=== PATIENT | male | born 1955 | race African-American/Black ===

== ENCOUNTER 2017-02-04 08:18 | Inpatient (IN) | payer OTHER ==
[2017-02-04 10:04] VITALS: BMI 23.8
--- NOTE | 2017-02-04 11:32 | HP ---
CIWA Score - CIWA Score Nausea/Vomitin-No Nausea/No Vomiting Muscle Tremors: 1-None Visible, but University Anxiety: 4-Mod. Anxious/Guarded Agitation: 4-Moderately Restless Paroxysmal Sweats: No Perspiration Orientation: 0-Oriented Tacttile Disturbances: 0-None Auditory Disturbances: 0-None Visual Disturbances: 0-None Headache: 0-None Present CIWA-Ar Total Score: 9 Admission ROS BHS - HPI Chief Complaint: Withdrawal sx. Allergies/Adverse Reactions: Allergies Allergy/AdvReac Type Severity Reaction Status Date / Time No Known Allergies Allergy Verified 02/04/17 10:25 History of Present Illness: 61 y/o man with a long hx of alcoholism is admitted for detox. Pt. has been in previous detox denies significant sobriety. He's currently attending mental health clinic in the . Exam Limitations: No Limitations - Ebola screening Have you traveled outside of the country in the last 21 days: No Have you had contact with anyone from an Ebola affected area: No Have you been sick,other than usual withdrawal symptoms: No - Review of Systems Constitutional: Diaphoresis EENT: reports: No Symptoms Reported Respiratory: reports: No Symptoms reported Cardiac: reports: No Symptoms Reported GI: reports: No Symptoms Reported : reports: No Symptoms Reported Musculoskeletal: reports: Back Pain, Joint Pain Integumentary: reports: Sweating Neuro: reports: Tremors Endocrine: reports: No Symptoms Reported Hematology: reports: No Symptoms Reported Psychiatric: reports: No Sypmtoms Reported Other Systems: Reviewed and Negative Patient History - Patient Medical History Hx Anemia: No Hx Asthma: No Hx Chronic Obstructive Pulmonary Disease (COPD): No Hx Cancer: No Hx Cardiac Disorders: No Hx Congestive Heart Failure: No Hx Hypertension: No Hx Hypercholesterolemia: No Hx Pacemaker: No HX Cerebrovascular Accident: No Hx Seizures: No Hx Dementia: No Hx Diabetes: No Hx Gastrointestinal Disorders: Yes (GERD on prilosec) Hx Liver Disease: No Hx Genitourinary Disorders: No Hx Sexually Transmitted Disorders: No Hx Renal Disease (ESRD): No Hx Thyroid Disease: No Hx Human Immunodeficiency Virus (HIV): No Hx Hepatitis C: No Hx Depression: Yes Hx Suicide Attempt: No Hx Bipolar Disorder: Yes Hx Schizophrenia: No - Patient Surgical History Past Surgical History: Yes Hx Abdominal Surgery: Yes (UMBILICAL HERNIA REPAIR 03/28) Anesthesia Reaction: No - PPD History Previous Implant?: Yes Documented Results: Negative w/o proof Implanted On Prior [facility] Admission?: No PPD to be Administered?: Yes - Smoking Cessation Smoking history: Current some day smoker Have you smoked in the past 12 months: Yes Aproximately how many cigarettes per day: 20 Hx Chewing Tobacco Use: No Initiated information on smoking cessation: Yes 'Breaking Loose' booklet given: 02/04/17 - Substance & Tx. History Hx Alcohol Use: Yes Hx Substance Use: Yes Substance Use Type: Alcohol, Cocaine Hx Substance Use Treatment: Yes (Detox) - Substances Abused Alcohol Route: Oral Frequency: Daily Amount used: 1 QT VODKA Age of first use: 14 Date of Last Use: 02/04/17 Cocaine Route: Inhalation Frequency: Daily Amount used: $100 Age of first use: 18 Date of Last Use: 02/04/17 Family Disease History - Family Disease History Family Disease History: Diabetes: Mother (HTN,CVA,alcoholism), Sister (HTN,CVA) , Heart Disease: Mother, Brother (HTN,Heroin,alcohol), Sister, Other: Mother, Brother, Sister Admission Physical Exam [facility] - Vital Signs Vital Signs: Vital Signs - 24 hr 02/04/17 10:00 Temperature 97 F L Pulse Rate 80 Respiratory 20 Rate Blood Pressure 113/76 - Physical General Appearance: Yes: Sweating, Anxious HEENTM: Yes: Within Normal Limits Respiratory: Yes: Chest Non-Tender, Lungs Clear, Normal Breath Sounds Neck: Yes: Supple Breast: Yes: Breast Exam Deferred Cardiology: Yes: Regular Rhythm, Regular Rate, S1, S2 Abdominal: Yes: Normal Bowel Sounds, Non Tender, Soft Genitourinary: Yes: Within Normal Limits Back: Yes: Within Normal Limits Musculoskeletal: Yes: Within Normal Limits Extremities: Yes: Tremors Neurological: Yes: Fully Oriented, Alert Integumentary: Yes: Diaphoresis Lymphatic: Yes: Within Normal Limits - Diagnostic (1) Alcohol dependence with uncomplicated withdrawal Current Visit: Yes Status: Acute (2) Cocaine dependence, uncomplicated Current Visit: Yes Status: Acute Cleared for Admission [facility] - Detox or Rehab [facility] Level of Care: Medically Supervised Detox Regimen/Protocol: Librium [facility] Breath Alcohol Content Breath Alcohol Content: 0.366 Urine Drug Screen - Results Drug Screen Negative: No Urine Drug Screen Results: EDNA-Cocaine
[2017-02-04] MEDS ORDERED: MAGNESIUM CITRATE 300 ML BOTTLE PO PRN (11:46)
[2017-02-04] MEDS ORDERED: chlordiazePOXIDE HCL 25 MG CAPSULE PO PRN (11:46)
[2017-02-04] MEDS ORDERED: chlordiazePOXIDE HCL 25 MG CAPSULE PO ONE (11:46)
[2017-02-04] MEDS ORDERED: P-EPHED 60MG/TRIPROLIDI 2.5MG TABLET PO PRN (11:46)
[2017-02-04] MEDS ORDERED: guaiFENesin/D-METHORPHAN HB 10 ML UNIT-DOSE CUPS PO PRN (11:46)
[2017-02-04] MEDS ORDERED: IBUPROFEN 400 MG TABLET (FP) PO PRN (11:46)
[2017-02-04] MEDS ORDERED: NICOTINE POLACRILEX 2 MG GUM BUC PRN (11:46)
[2017-02-04] MEDS ORDERED: MAGNESIUM HYDROX 2400MG/30ML ORAL SUSPENSION 30 ML CUP PO PRN (11:46)
[2017-02-04] MEDS ORDERED: hydrOXYzine PAMOATE 50 MG CAPSULE (FP) PO PRN (11:46)
[2017-02-04] MEDS ORDERED: MENTHOL/PHENOL 1 EACH UD MM PRN (11:46)
[2017-02-04] MEDS ORDERED: MAG HYDROX/AL HYDROX/SIMETH 30 ML UNIT-DOSE CUP PO PRN (11:46)
[2017-02-04] MEDS ORDERED: ACETAMINOPHEN 325 MG TABLET (FP) PO PRN (11:46)
[2017-02-04] MEDS ORDERED: LOPERAMIDE HCL 2 MG CAPSULE PO PRN (11:46)
[2017-02-04] MEDS: NICOTINE 21 MG/24 HOURS TOPICAL PATCH TD SCH (13:00)
[2017-02-04] MEDS ORDERED: chlordiazePOXIDE HCL 25 MG CAPSULE ONE (14:26)
[2017-02-04] MEDS: chlordiazePOXIDE HCL 25 MG CAPSULE PO SCH ×2 (17:13→22:28)
[2017-02-04 18:01] LABS: URINE APPEARANCE CLEAR; URINE BILIRUBIN NEGATIVE (NEGATIVE); URINE COLOR YELLOW; URINE GLUCOSE (UA) NEGATIVE (NEGATIVE); URINE KETONE 1+ (NEGATIVE); URINE LEUK ESTERASE NEGATIVE (NEGATIVE); URINE NITRITE NEGATIVE (NEGATIVE); URINE UROBILINOGEN NEGATIVE E.U./dl (0.2-1.0)
[2017-02-04 18:19] LABS: URINE BLOOD 1+ (NEGATIVE); URINE PROTEIN 2+ (NEGATIVE)
[2017-02-04 20:37] LABS: URINE BACTERIA MANY /hpf (NONE SEEN); URINE MUCUS MANY; URINE RBC 5 /hpf (0-3); URINE WBC 11 /hpf (3-5)
[2017-02-04] MEDS: THIAMINE HCL 100 MG TABLET (FP) PO SCH (22:28)
[2017-02-04] MEDS: diphenhydrAMINE HCL 50 MG CAPSULE PO PRN (22:28)
[2017-02-05] MEDS: chlordiazePOXIDE HCL 25 MG CAPSULE PO SCH ×5 (05:56→22:56)
--- NOTE | 2017-02-05 08:26 | EKG ---
Test Reason : Blood Pressure : / mmHG Vent. Rate : 055 BPM Atrial Rate : 055 BPM P-R Int : 180 ms QRS Dur : 096 ms QT Int : 450 ms P-R-T Axes : 061 009 019 degrees QTc Int : 430 ms SINUS BRADYCARDIA VOLTAGE CRITERIA FOR LEFT VENTRICULAR HYPERTROPHY ABNORMAL ECG NO PREVIOUS ECGS AVAILABLE Confirmed by JANA DEY, LARISSA ([id number]) on 02/05/2017 8:25:34 AM Referred By: Moose Ferrell Confirmed By:LARISSA BATES MD
[2017-02-05 10:25] LABS: ALBUMIN 3.9 g/dl (3.4-5.0); CALCIUM 9.1 mg/dL (8.5-10.1); COCKROFT - GAULT 59.66; CREATININE 1.3 mg/dL (0.7-1.3)
[2017-02-05 10:27] LABS: BILIRUBIN,TOTAL 0.7 mg/dL (0.2-1.0); TOT PROT 6.9 g/dl (6.4-8.2)
[2017-02-05] MEDS: PRENATAL VITAMINS W/ FOLIC ACID TABLET (FP) PO SCH (10:33)
[2017-02-05] MEDS: ASPIRIN 81 MG CHEWABLE TABLETS PO SCH (10:34)
[2017-02-05] MEDS: NICOTINE 21 MG/24 HOURS TOPICAL PATCH TD SCH (10:34)
--- NOTE | 2017-02-05 10:55 | CONSULT ---
[facility] Psychiatric Consult - Data Date of interview: 02/05/17 Admission source: [facility] Identifying data: This is 61 years old male with no psychiatric hospitalization history intoxicated with: Alcohol, Copcaine, Nicotine Substance Abuse History: - Smoking Cessation. Smoking history: Current some day smoker. Have you smoked in the past 12 months: Yes. Aproximately how many cigarettes per day: 20. Hx Chewing Tobacco Use: No. Initiated information on smoking cessation: Yes. 'Breaking Loose' booklet given: 02/04/17. - Substance & Tx. History. Hx Alcohol Use: Yes. Hx Substance Use: Yes. Substance Use Type : Alcohol, Cocaine. Hx Substance Use Treatment: Yes (Detox). - Substances Abused. Alcohol. Route: Oral. Frequency: Daily. Amount used: 1 QT VODKA. Age of first use: 14. Date of Last Use: 02/04/17. Cocaine. Route: Inhalation. Frequency: Daily. Amount used: $100. Age of first use: 18. Date of Last Use: 02/04/17 Medical History: Umbilical Hernia surgery history Psychiatric History: Patioent reprots histopry of depression, reports taking prior to admission: Paxil 30mg poqd. Ambien 10mg po qhs Physical/Sexual Abuse/Trauma History: Denies Additional Comment: Paxil 30mg poqd. Ambien 10mg po qhs Mental Status Exam - Mental Status Exam Alert and Oriented to: Person Cognitive Function: Fair Patient Appearance: Well Groomed, Unkempt Mood: Nervous, Anxious Affect: Mood Congruent Patient Behavior: Guarded, Cooperative Speech Pattern: Pressured Voice Loudness: Normal Thought Process: Goal Oriented Thought Disorder: Being Controlled Hallucinations: Denies Suicidal Ideation: Denies Homicidal Ideation: Denies Insight/Judgement: Fair Sleep: Difficulty falling asleep Appetite: Fair Muscle strength/Tone: Normal Gait/Station: Normal Additional Comments: Paxil 30mg poqd. Ambien 10mg po qhs Psychiatric Findings - Problem List ([place] 1, 2,3) (1) Alcohol dependence with uncomplicated withdrawal Current Visit: Yes Status: Acute (2) Cocaine dependence, uncomplicated Current Visit: Yes Status: Acute (3) Drug-induced mood disorder Current Visit: Yes Status: Acute - Initial Treatment Plan Initial Treatment Plan: Paxil 30mg poqd. Ambien 10mg po qhs
[2017-02-05 10:58] LABS: BASOPHIL 1.2 % (0-2.0); EOSINOPHIL 3.5 % (0-4.5); MCH 29.1 pg (25.7-33.7); MCHC 32.9 g/dl (32.0-35.9); MEAN CELL VOLUME 88.6 fl (80-96); MEAN PLT VOLUME 9.2 fl (7.5-11.1); NEUTROPHILS 67.3 % (42.8-82.8); PLATELET COUNT 271 K/MM3 (134-434); RDW 14.5 % (11.9-15.9); WHITE BLOOD COUNT 8.9 K/mm3 (4.0-10.0)
--- NOTE | 2017-02-05 11:23 | PN ---
[facility] CIWA - CIWA Score Nausea/Vomitin-No Nausea/No Vomiting Muscle Tremors: 4-Moderate,w/Arms Extend Anxiety: 4-Mod. Anxious/Guarded Agitation: 4-Moderately Restless Paroxysmal Sweats: 1-Minimal Palms Moist Orientation: 0-Oriented Tacttile Disturbances: 3-Moderate Itch/Numb/Burn Auditory Disturbances: 0-None Visual Disturbances: 0-None Headache: 0-None Present CIWA-Ar Total Score: 16 BHS Progress Note (SOAP) Subjective: ANXIETY,SWEATS,FATIGUE. Objective: 02/05/17 11:18 Vital Signs Temperature 97.1 F L 02/05/17 10:03 Pulse Rate 77 02/05/17 10:03 Respiratory Rate 18 02/05/17 10:03 Blood Pressure 105/74 02/05/17 10:03 O2 Sat by Pulse Oximetry (%) Laboratory Last Values WBC 8.9 K/mm3 (4.0-10.0) 02/05/17 06:00 RBC 4.60 M/mm3 (4.00-5.60) 02/05/17 06:00 Hgb 13.4 GM/dL (11.7-16.9) 02/05/17 06:00 Hct 40.8 % (35.4-49) 02/05/17 06:00 MCV 88.6 fl (80-96) 02/05/17 06:00 MCHC 32.9 g/dl (32.0-35.9) 02/05/17 06:00 RDW 14.5 % (11.9-15.9) 02/05/17 06:00 Plt Count 271 K/MM3 (134-434) 02/05/17 06:00 MPV 9.2 fl (7.5-11.1) 02/05/17 06:00 Neutrophils % 67.3 % (42.8-82.8) 02/05/17 06:00 Lymphocytes % 18.7 % (8-40) 02/05/17 06:00 Monocytes % 9.3 % (3.8-10.2) 02/05/17 06:00 Eosinophils % 3.5 % (0-4.5) 02/05/17 06:00 Basophils % 1.2 % (0-2.0) 02/05/17 06:00 Sodium 143 mmol/L (136-145) 02/05/17 06:00 Potassium 3.9 mmol/L (3.5-5.1) 02/05/17 06:00 Chloride 104 mmol/L (98-107) 02/05/17 06:00 Carbon Dioxide 30 mmol/L (21-32) 02/05/17 06:00 Anion Gap 9 (8-16) 02/05/17 06:00 BUN 16 mg/dL (7-18) 02/05/17 06:00 Creatinine 1.3 mg/dL (0.7-1.3) 02/05/17 06:00 Creat Clearance w eGFR 56.50 (>60) 02/05/17 06:00 Random Glucose 107 mg/dL (74-106) H 02/05/17 06:00 Calcium 9.1 mg/dL (8.5-10.1) 02/05/17 06:00 Total Bilirubin 0.7 mg/dL (0.2-1.0) 02/05/17 06:00 AST 34 U/L (15-37) 02/05/17 06:00 ALT 42 U/L (12-78) 02/05/17 06:00 Alkaline Phosphatase 72 U/L (45-117) 02/05/17 06:00 Total Protein 6.9 g/dl (6.4-8.2) 02/05/17 06:00 Albumin 3.9 g/dl (3.4-5.0) 02/05/17 06:00 Urine Color Yellow 02/04/17 13:00 Urine Appearance Clear 02/04/17 13:00 Urine pH 5.0 (5.0-8.0) 02/04/17 13:00 Ur Specific [place] 1.020 (1.001-1.035) 02/04/17 13:00 Urine Protein 2+ (NEGATIVE) H 02/04/17 13:00 Urine Glucose (UA) Negative (NEGATIVE) 02/04/17 13:00 Urine Ketones 1+ (NEGATIVE) H 02/04/17 13:00 Urine Blood 1+ (NEGATIVE) H 02/04/17 13:00 Urine Nitrite Negative (NEGATIVE) 02/04/17 13:00 Urine Bilirubin Negative (NEGATIVE) 02/04/17 13:00 Urine Urobilinogen Negative E.U./dl (0.2-1.0) 02/04/17 13:00 Ur Leukocyte Esterase Negative (NEGATIVE) 02/04/17 13:00 Urine RBC 5 /hpf (0-3) 02/04/17 13:00 Urine WBC 11 /hpf (3-5) 02/04/17 13:00 Urine Bacteria Many /hpf (NONE SEEN) 02/04/17 13:00 Urine Mucus Many 02/04/17 13:00 Assessment: 02/05/17 11:19 WITHDRAWAL SX Plan: CONTINUE DETOX REPEAT UA
[2017-02-05] MEDS: PARoxetine HCL 10 MG TABLET (FP) PO SCH (14:40)
[2017-02-05 18:13] LABS: URINE APPEARANCE CLEAR; URINE BILIRUBIN NEGATIVE (NEGATIVE); URINE BLOOD NEGATIVE (NEGATIVE); URINE COLOR YELLOW; URINE GLUCOSE (UA) NEGATIVE (NEGATIVE); URINE KETONE NEGATIVE (NEGATIVE); URINE LEUK ESTERASE NEGATIVE (NEGATIVE); URINE NITRITE NEGATIVE (NEGATIVE); URINE PROTEIN NEGATIVE (NEGATIVE); URINE UROBILINOGEN NEGATIVE E.U./dl (0.2-1.0)
[2017-02-05] MEDS ORDERED: ZOLPIDEM TARTRATE 10 MG TABLET (PARK CARE ONLY) PO PRN (22:00)
[2017-02-05] MEDS: THIAMINE HCL 100 MG TABLET (FP) PO SCH (22:57)
[2017-02-06] MEDS: chlordiazePOXIDE HCL 25 MG CAPSULE PO SCH ×2 (05:33→10:27)
[2017-02-06] MEDS: ASPIRIN 81 MG CHEWABLE TABLETS PO SCH (10:27)
[2017-02-06] MEDS: PARoxetine HCL 10 MG TABLET (FP) PO SCH (10:27)
[2017-02-06] MEDS: NICOTINE 21 MG/24 HOURS TOPICAL PATCH TD SCH (10:27)
[2017-02-06] MEDS: PRENATAL VITAMINS W/ FOLIC ACID TABLET (FP) PO SCH (10:27)
--- NOTE | 2017-02-06 12:21 | PN ---
[facility] CIWA - CIWA Score Nausea/Vomitin-No Nausea/No Vomiting Muscle Tremors: 4-Moderate,w/Arms Extend Anxiety: 4-Mod. Anxious/Guarded Agitation: 4-Moderately Restless Paroxysmal Sweats: 1-Minimal Palms Moist Orientation: 0-Oriented Tacttile Disturbances: 3-Moderate Itch/Numb/Burn Auditory Disturbances: 0-None Visual Disturbances: 0-None Headache: 0-None Present CIWA-Ar Total Score: 16 BHS Progress Note (SOAP) Subjective: ANXIETY,SWEATS/CHILLS,FATIGUE. Objective: 02/06/17 12:20 Vital Signs Temperature 97.4 F L 02/06/17 09:20 Pulse Rate 74 02/06/17 09:20 Respiratory Rate 18 02/06/17 09:20 Blood Pressure 118/79 02/06/17 09:20 O2 Sat by Pulse Oximetry (%) Laboratory Last Values WBC 8.9 K/mm3 (4.0-10.0) 02/05/17 06:00 RBC 4.60 M/mm3 (4.00-5.60) 02/05/17 06:00 Hgb 13.4 GM/dL (11.7-16.9) 02/05/17 06:00 Hct 40.8 % (35.4-49) 02/05/17 06:00 MCV 88.6 fl (80-96) 02/05/17 06:00 MCHC 32.9 g/dl (32.0-35.9) 02/05/17 06:00 RDW 14.5 % (11.9-15.9) 02/05/17 06:00 Plt Count 271 K/MM3 (134-434) 02/05/17 06:00 MPV 9.2 fl (7.5-11.1) 02/05/17 06:00 Neutrophils % 67.3 % (42.8-82.8) 02/05/17 06:00 Lymphocytes % 18.7 % (8-40) 02/05/17 06:00 Monocytes % 9.3 % (3.8-10.2) 02/05/17 06:00 Eosinophils % 3.5 % (0-4.5) 02/05/17 06:00 Basophils % 1.2 % (0-2.0) 02/05/17 06:00 Sodium 143 mmol/L (136-145) 02/05/17 06:00 Potassium 3.9 mmol/L (3.5-5.1) 02/05/17 06:00 Chloride 104 mmol/L (98-107) 02/05/17 06:00 Carbon Dioxide 30 mmol/L (21-32) 02/05/17 06:00 Anion Gap 9 (8-16) 02/05/17 06:00 BUN 16 mg/dL (7-18) 02/05/17 06:00 Creatinine 1.3 mg/dL (0.7-1.3) 02/05/17 06:00 Creat Clearance w eGFR 56.50 (>60) 02/05/17 06:00 Random Glucose 107 mg/dL (74-106) H 02/05/17 06:00 Calcium 9.1 mg/dL (8.5-10.1) 02/05/17 06:00 Total Bilirubin 0.7 mg/dL (0.2-1.0) 02/05/17 06:00 AST 34 U/L (15-37) 02/05/17 06:00 ALT 42 U/L (12-78) 02/05/17 06:00 Alkaline Phosphatase 72 U/L (45-117) 02/05/17 06:00 Total Protein 6.9 g/dl (6.4-8.2) 02/05/17 06:00 Albumin 3.9 g/dl (3.4-5.0) 02/05/17 06:00 Urine Color Yellow 02/05/17 14:38 Urine Appearance Clear 02/05/17 14:38 Urine pH 5.0 (5.0-8.0) 02/05/17 14:38 Ur Specific [place] 1.020 (1.001-1.035) 02/05/17 14:38 Urine Protein Negative (NEGATIVE) 02/05/17 14:38 Urine Glucose (UA) Negative (NEGATIVE) 02/05/17 14:38 Urine Ketones Negative (NEGATIVE) 02/05/17 14:38 Urine Blood Negative (NEGATIVE) 02/05/17 14:38 Urine Nitrite Negative (NEGATIVE) 02/05/17 14:38 Urine Bilirubin Negative (NEGATIVE) 02/05/17 14:38 Urine Urobilinogen Negative E.U./dl (0.2-1.0) 02/05/17 14:38 Ur Leukocyte Esterase Negative (NEGATIVE) 02/05/17 14:38 Urine RBC 5 /hpf (0-3) 02/04/17 13:00 Urine WBC 11 /hpf (3-5) 02/04/17 13:00 Urine Bacteria Many /hpf (NONE SEEN) 02/04/17 13:00 Urine Mucus Many 02/04/17 13:00 RPR Titer Nonreactive (NONREACTIVE) 02/05/17 06:00 Assessment: 02/06/17 12:20 WITHDRAWAL SX Plan: CONTINUE DETOX
[2017-02-06] MEDS: chlordiazePOXIDE 5 MG CAPSULE PO SCH ×2 (18:19→22:46)
[2017-02-06 20:24] LABS: URINE APPEARANCE CLEAR; URINE BILIRUBIN NEGATIVE (NEGATIVE); URINE BLOOD NEGATIVE (NEGATIVE); URINE COLOR LTYELLOW; URINE GLUCOSE (UA) NEGATIVE (NEGATIVE); URINE KETONE NEGATIVE (NEGATIVE); URINE NITRITE NEGATIVE (NEGATIVE); URINE PROTEIN NEGATIVE (NEGATIVE); URINE UROBILINOGEN NEGATIVE E.U./dl (0.2-1.0)
[2017-02-06 21:19] LABS: URINE LEUK ESTERASE 1+ (NEGATIVE)
[2017-02-06] MEDS: THIAMINE HCL 100 MG TABLET (FP) PO SCH (22:46)
[2017-02-06] MEDS: diphenhydrAMINE HCL 50 MG CAPSULE PO PRN (22:47)
[2017-02-06 22:49] LABS: URINE MUCUS RARE; URINE RBC 2 /hpf (0-3); URINE WBC 6 /hpf (3-5)
[2017-02-06 22:50] LABS: URINE HYALINE CAST 3 /lpf
[2017-02-07] MEDS: chlordiazePOXIDE 5 MG CAPSULE PO SCH ×2 (05:24→10:45)
--- NOTE | 2017-02-07 10:35 | PN ---
BHS Progress Note (SOAP) Subjective: Sweating,interrupted sleep,restless Objective: 02/07/17 10:30 Vital Signs - 8 hr 02/07/17 02/07/17 02/07/17 03:35 06:30 06:41 Temperature 97.3 F L Pulse Rate 61 Respiratory 18 18 18 Rate Blood Pressure 131/84 02/07/17 09:28 Temperature 96.0 F L Pulse Rate 74 Respiratory 18 Rate Blood Pressure 118/78 Laboratory Last Values WBC 8.9 K/mm3 (4.0-10.0) 02/05/17 06:00 RBC 4.60 M/mm3 (4.00-5.60) 02/05/17 06:00 Hgb 13.4 GM/dL (11.7-16.9) 02/05/17 06:00 Hct 40.8 % (35.4-49) 02/05/17 06:00 MCV 88.6 fl (80-96) 02/05/17 06:00 MCHC 32.9 g/dl (32.0-35.9) 02/05/17 06:00 RDW 14.5 % (11.9-15.9) 02/05/17 06:00 Plt Count 271 K/MM3 (134-434) 02/05/17 06:00 MPV 9.2 fl (7.5-11.1) 02/05/17 06:00 Neutrophils % 67.3 % (42.8-82.8) 02/05/17 06:00 Lymphocytes % 18.7 % (8-40) 02/05/17 06:00 Monocytes % 9.3 % (3.8-10.2) 02/05/17 06:00 Eosinophils % 3.5 % (0-4.5) 02/05/17 06:00 Basophils % 1.2 % (0-2.0) 02/05/17 06:00 Sodium 143 mmol/L (136-145) 02/05/17 06:00 Potassium 3.9 mmol/L (3.5-5.1) 02/05/17 06:00 Chloride 104 mmol/L (98-107) 02/05/17 06:00 Carbon Dioxide 30 mmol/L (21-32) 02/05/17 06:00 Anion Gap 9 (8-16) 02/05/17 06:00 BUN 16 mg/dL (7-18) 02/05/17 06:00 Creatinine 1.3 mg/dL (0.7-1.3) 02/05/17 06:00 Creat Clearance w eGFR 56.50 (>60) 02/05/17 06:00 Random Glucose 107 mg/dL (74-106) H 02/05/17 06:00 Calcium 9.1 mg/dL (8.5-10.1) 02/05/17 06:00 Total Bilirubin 0.7 mg/dL (0.2-1.0) 02/05/17 06:00 AST 34 U/L (15-37) 02/05/17 06:00 ALT 42 U/L (12-78) 02/05/17 06:00 Alkaline Phosphatase 72 U/L (45-117) 02/05/17 06:00 Total Protein 6.9 g/dl (6.4-8.2) 02/05/17 06:00 Albumin 3.9 g/dl (3.4-5.0) 02/05/17 06:00 Urine Color Ltyellow 02/06/17 19:45 Urine Appearance Clear 02/06/17 19:45 Urine pH 6.0 (5.0-8.0) 02/06/17 19:45 Ur Specific [place] 1.015 (1.001-1.035) 02/06/17 19:45 Urine Protein Negative (NEGATIVE) 02/06/17 19:45 Urine Glucose (UA) Negative (NEGATIVE) 02/06/17 19:45 Urine Ketones Negative (NEGATIVE) 02/06/17 19:45 Urine Blood Negative (NEGATIVE) 02/06/17 19:45 Urine Nitrite Negative (NEGATIVE) 02/06/17 19:45 Urine Bilirubin Negative (NEGATIVE) 02/06/17 19:45 Urine Urobilinogen Negative E.U./dl (0.2-1.0) 02/06/17 19:45 Ur Leukocyte Esterase 1+ (NEGATIVE) H 02/06/17 19:45 Urine RBC 2 /hpf (0-3) 02/06/17 19:45 Urine WBC 6 /hpf (3-5) 02/06/17 19:45 Ur Epithelial Cells Rare /hpf (FEW) 02/06/17 19:45 Urine Bacteria Many /hpf (NONE SEEN) 02/04/17 13:00 Hyaline Casts 3 /lpf 02/06/17 19:45 Urine Mucus Rare 02/06/17 19:45 RPR Titer Nonreactive (NONREACTIVE) 02/05/17 06:00 labs noted,repeat u/a today Assessment: 02/07/17 10:35 withdrawal sx. Plan: continue detox
[2017-02-07] MEDS: ASPIRIN 81 MG CHEWABLE TABLETS PO SCH (10:44)
[2017-02-07] MEDS: PRENATAL VITAMINS W/ FOLIC ACID TABLET (FP) PO SCH (10:44)
[2017-02-07] MEDS: PARoxetine HCL 10 MG TABLET (FP) PO SCH (10:44)
[2017-02-07] MEDS: NICOTINE 21 MG/24 HOURS TOPICAL PATCH TD SCH (10:45)
[2017-02-07] MEDS: chlordiazePOXIDE HCL 10 MG CAPSULE PO SCH ×2 (17:13→22:24)
[2017-02-07] MEDS: THIAMINE HCL 100 MG TABLET (FP) PO SCH (22:24)
[2017-02-08] MEDS: chlordiazePOXIDE HCL 10 MG CAPSULE PO SCH (05:02)
[2017-02-08 06:36] VITALS: BP 126/91; PULSE 65; TEMP 97.8
--- NOTE | 2017-02-08 15:20 | DS ---
[facility] Detox Discharge Summary Admission Date: 02/04/17 Discharge Date: 02/08/17 - History Present History: Alcohol Dependence, Cocaine Dependence Additional Comments: ADVISED PATIENT TO FOLLOW-UP WITH [facility] / REHAB MEDICAL PROVIDER AFTER DISCHARGE FROM DETOX FOR GENERAL MEDICAL ASSESSMENT AND FOR ABNORMAL ADMISSION LAB VALUES. Pertinent Past History: GERD, Depression, Bi-Polar disorder. - Physical Exam Results Vital Signs: Vital Signs Temperature 97.8 F 02/08/17 06:00 Pulse Rate 65 02/08/17 06:00 Respiratory Rate 18 02/08/17 06:00 Blood Pressure 126/91 02/08/17 06:00 O2 Sat by Pulse Oximetry (%) Pertinent Admission Physical Exam Findings: WITHDRAWAL SYMPTOMS. Laboratory Last Values WBC 8.9 K/mm3 (4.0-10.0) 02/05/17 06:00 RBC 4.60 M/mm3 (4.00-5.60) 02/05/17 06:00 Hgb 13.4 GM/dL (11.7-16.9) 02/05/17 06:00 Hct 40.8 % (35.4-49) 02/05/17 06:00 MCV 88.6 fl (80-96) 02/05/17 06:00 MCHC 32.9 g/dl (32.0-35.9) 02/05/17 06:00 RDW 14.5 % (11.9-15.9) 02/05/17 06:00 Plt Count 271 K/MM3 (134-434) 02/05/17 06:00 MPV 9.2 fl (7.5-11.1) 02/05/17 06:00 Neutrophils % 67.3 % (42.8-82.8) 02/05/17 06:00 Lymphocytes % 18.7 % (8-40) 02/05/17 06:00 Monocytes % 9.3 % (3.8-10.2) 02/05/17 06:00 Eosinophils % 3.5 % (0-4.5) 02/05/17 06:00 Basophils % 1.2 % (0-2.0) 02/05/17 06:00 Sodium 143 mmol/L (136-145) 02/05/17 06:00 Potassium 3.9 mmol/L (3.5-5.1) 02/05/17 06:00 Chloride 104 mmol/L (98-107) 02/05/17 06:00 Carbon Dioxide 30 mmol/L (21-32) 02/05/17 06:00 Anion Gap 9 (8-16) 02/05/17 06:00 BUN 16 mg/dL (7-18) 02/05/17 06:00 Creatinine 1.3 mg/dL (0.7-1.3) 02/05/17 06:00 Creat Clearance w eGFR 56.50 (>60) 02/05/17 06:00 Random Glucose 107 mg/dL (74-106) H 02/05/17 06:00 Calcium 9.1 mg/dL (8.5-10.1) 02/05/17 06:00 Total Bilirubin 0.7 mg/dL (0.2-1.0) 02/05/17 06:00 AST 34 U/L (15-37) 02/05/17 06:00 ALT 42 U/L (12-78) 02/05/17 06:00 Alkaline Phosphatase 72 U/L (45-117) 02/05/17 06:00 Total Protein 6.9 g/dl (6.4-8.2) 02/05/17 06:00 Albumin 3.9 g/dl (3.4-5.0) 02/05/17 06:00 Urine Color Ltyellow 02/06/17 19:45 Urine Appearance Clear 02/06/17 19:45 Urine pH 6.0 (5.0-8.0) 02/06/17 19:45 Ur Specific [place] 1.015 (1.001-1.035) 02/06/17 19:45 Urine Protein Negative (NEGATIVE) 02/06/17 19:45 Urine Glucose (UA) Negative (NEGATIVE) 02/06/17 19:45 Urine Ketones Negative (NEGATIVE) 02/06/17 19:45 Urine Blood Negative (NEGATIVE) 02/06/17 19:45 Urine Nitrite Negative (NEGATIVE) 02/06/17 19:45 Urine Bilirubin Negative (NEGATIVE) 02/06/17 19:45 Urine Urobilinogen Negative E.U./dl (0.2-1.0) 02/06/17 19:45 Ur Leukocyte Esterase 1+ (NEGATIVE) H 02/06/17 19:45 Urine RBC 2 /hpf (0-3) 02/06/17 19:45 Urine WBC 6 /hpf (3-5) 02/06/17 19:45 Ur Epithelial Cells Rare /hpf (FEW) 02/06/17 19:45 Urine Bacteria Many /hpf (NONE SEEN) 02/04/17 13:00 Hyaline Casts 3 /lpf 02/06/17 19:45 Urine Mucus Rare 02/06/17 19:45 RPR Titer Nonreactive (NONREACTIVE) 02/05/17 06:00 LABS NOTED. - Treatment Hospital Course: Detox Protocol Followed, Detoxed Safely, Responded well, Discharged Condition Good Patient has Accepted a Rehab Referral to: NO - PT. ELECTING TO GO HOME. AA / 12- STEP PROGRAMS RECOMMENDED. - Medication Discharge Medications: Ambulatory Orders Aspirin [ASA -] 81 mg PO DAILY 02/04/17 Naproxen [Naprosyn -] 500 mg PO BID 02/04/17 Paroxetine HCl [Paxil -] 30 mg PO DAILY 02/04/17 Quetiapine Fumarate [Seroquel -] 500 mg PO HS 02/04/17 Paroxetine HCl [Paxil -] 30 mg PO DAILY #30 tablet 02/05/17 - Diagnosis (1) Alcohol dependence with uncomplicated withdrawal Status: Acute (2) Cocaine dependence, uncomplicated Status: Acute (3) Drug-induced mood disorder Status: Acute - AMA Did Patient Leave Against Medical Advice: No
== END 2017-02-08 06:48 | disposition home or self-care (01) | DRG 897 ==
LOC: YASAS 08:18 → Y3N 11:44
PROVIDERS: ADMIT Internal Medicine; ATTEND Internal Medicine
PROC: HZ2ZZZZ Detoxification Services for Substance Abuse Treatment (ICD-10-PCS; principal; 2017-02-08)
DX: F10.230 Alcohol dependence with withdrawal, uncomplicated (principal); F14.20 Cocaine dependence, uncomplicated; F19.24 Other psychoactive substance dependence with psychoactive substance-induced mood disorder; F32.9 Major depressive disorder, single episode, unspecified; K21.9 Gastro-esophageal reflux disease without esophagitis
CPT/HCPCS: 36415; 80053; 81003; 81015; 85025; 86593; 93005; 93010